=== PATIENT | female | born 1945 | race Caucasian/White ===

== ENCOUNTER 2017-11-05 16:13 | Inpatient (IN) | payer MEDICARE, OTHER ==
[~2017-11-05] VITALS: Ht 152.4 cm; Wt 64.0 kg
[2017-11-05 21:30] VITALS: BP 141/75
[2017-11-05] MEDS ORDERED: OxyCODONE HCL/ACETAMINOPHEN 5-325 MG TABLET NG PRN (21:45)
[2017-11-05] MEDS ORDERED: TEMAZEPAM 15 MG CAPSULE PO PRN (21:45)
[2017-11-05] MEDS ORDERED: ACETAMINOPHEN 650 MG/20.3 ML SOLUTION UDCUP NG PRN (21:45)
[2017-11-05] MEDS ORDERED: SODIUM PHOS/SODIUM BIPHOS 133 ML ENEMA PR PRN (21:45)
[2017-11-05] MEDS ORDERED: DEXTROSE 50%-WATER 25 GM/50 ML SYRINGE IVP PRN (23:45)
[2017-11-05] MEDS ORDERED: INSULIN REGULAR, HUMAN 100 UNITS/ML SQ PRN (23:45)
[2017-11-05 23:56] LABS: APPEARANCE,URINE CLEAR (CLEAR); BILIRUBIN,URINE NEGATIVE (NEGATIVE); GLUCOSE, URINE (UA) NEGATIVE (NEGATIVE); KETONES,URINE >=80 mg/dL (NEGATIVE); LEUKOCYTE ESTERASE ,URINE NEGATIVE (NEGATIVE); NITRATE,URINE NEGATIVE (NEGATIVE); OCCULT BLOOD,URINE NEGATIVE (NEGATIVE); PROTEIN,URINE NEGATIVE (NEGATIVE)
[2017-11-06 00:02] VITALS: BP 137/79
[2017-11-06 00:13] LABS: BACTERIA,URINE None Seen /HPF (None Seen); RBC,URINE None Seen /HPF (0-2); SQUAMOUS EPITHELIAL CELL,UR Rare /LPF (None Seen); WBC,URINE None Seen /HPF (0-5)
[2017-11-06] MEDS ORDERED: DOCUSATE SODIUM 283 MG/5 ML MINI-ENEMA PR PRN (00:15)
[2017-11-06] MEDS ORDERED: MAGNESIUM HYDROXIDE SUSPENSION 30 ML UDCUP NG PRN (00:15)
[2017-11-06 01:28] LABS: GLUCOMETER DEV NAME(LOC) 2WR 1B; GLUCOSE,POINT OF CARE 78 MG/DL (70-110)
[2017-11-06] MEDS ORDERED: DEXTROSE 5%-0.45% SODIUM CHL 1,000 ML IV SCH (01:30)
[2017-11-06 06:23] LABS: BASOPHILS % (AUTO) 0.8 % (0.0-2.0); EOSINOPHILS % (AUTO) 1.8 % (1.0-6.0); HEMATOCRIT 32.3 % (36-46); HEMOGLOBIN 11.1 g/dL (12.0-16.0); LYMPHOCYTES # (AUTO) 3.2 K/uL (1.0-4.8); LYMPHOCYTES % (AUTO) 29.4 % (22.0-44.0); MEAN CORPUSCULAR HEMOGLOBIN 31.7 pg (26.0-34.0); MEAN CORPUSCULAR HGB CONC 34.4 G/dL (31.0-37.0); MEAN CORPUSCULAR VOLUME 92 fL (80-100); MONOCYTES # (AUTO) 1.1 K/uL (0.1-1.0); MONOCYTES % (AUTO) 10.5 % (2.0-9.0); NEUTROPHILS # (AUTO) 6.3 K/uL (1.8-7.7); NEUTROPHILS % (AUTO) 57.5 % (40.0-70.0); PLATELET COUNT (AUTO) 209 K/uL (150-450); RED BLOOD CELL COUNT(AUTO) 3.51 MIL/uL (4.00-5.20); RED CELL DISTRIBUTION WIDTH 13.4 % (11.5-14.5)
[2017-11-06 06:24] LABS: GLUCOMETER DEV NAME(LOC) 2WR 2E; GLUCOSE,POINT OF CARE 100 MG/DL (70-110)
[2017-11-06 06:39] LABS: ALANINE AMINOTRANSFERASE 18 U/L (12-78); ALKALINE PHOSPHATASE 52 U/L (46-116); ANION GAP 7 mmol/L (8-16); ASPARTATE AMINOTRANSFERASE 22 U/L (15-37); BILIRUBIN,TOTAL 0.3 mg/dL (0.1-1.0); CALCIUM, TOTAL 8.8 mg/dL (8.8-10.5); CARBON DIOXIDE 28 mmol/L (22-29); CHLORIDE 103 mmol/L (98-107); CREATININE 0.73 mg/dL (0.60-1.30); GLUCOSE,RANDOM 99 mg/dL (70-110); SODIUM SERUM 138 mmol/L (136-145); TOTAL PROTEIN, SERUM 6.6 g/dL (6.4-8.2); UREA NITROGEN, BLOOD 11 mg/dL (7-18)
[2017-11-06 06:42] LABS: GLOMERULAR FILTR. RATE CALC > 60 mL/min (>60); POTASSIUM 2.9 mmol/L (3.5-5.1)
[2017-11-06] MEDS ORDERED: POTASSIUM CHLORIDE 20 MEQ ER TABLET PO PRN (07:00)
[2017-11-06 07:15] VITALS: BP 152/74
[2017-11-06] MEDS: POTASSIUM CHL 10 MEQ/WATER 50 ML IV PRN ×4 (08:25→13:48)
[2017-11-06] MEDS: HYDROmorphone 2 MG/ML SYRINGE IVP PRN ×2 (08:41→18:48)
[2017-11-06] MEDS ORDERED: DOCUSATE SODIUM 100 MG CAPSULE NG SCH (09:00)
[2017-11-06] MEDS ORDERED: DEXAMETHASONE 1 MG TABLET NG SCH (09:00)
[2017-11-06] MEDS ORDERED: METOPROLOL SUCCINATE 50 MG ER TABLET NG SCH (09:00)
[2017-11-06] MEDS ORDERED: CHOLECALCIFEROL (VIT D3) 1,000 UNITS TABLET NG SCH (09:00)
[2017-11-06] MEDS ORDERED: LORATADINE 10 MG TABLET NG SCH (09:00)
[2017-11-06] MEDS ORDERED: OMEPRAZOLE 20 MG CAPSULE NG SCH (09:00)
[2017-11-06 12:00] VITALS: BP 130/76
[2017-11-06 12:34] LABS: GLUCOMETER DEV NAME(LOC) 2WR 1B; GLUCOSE,POINT OF CARE 93 MG/DL (70-110)
[2017-11-06 15:00] VITALS: BP 133/76
[2017-11-06] MEDS ORDERED: OxyCODONE HCL/ACETAMINOPHEN 5-325 MG TABLET PO PRN (19:57)
[2017-11-06] MEDS ORDERED: DOCUSATE SODIUM 100 MG CAPSULE PO SCH (19:58)
[2017-11-06 20:04] VITALS: BP 126/70
[2017-11-06] MEDS: DEXAMETHASONE 1 MG TABLET PO SCH (20:10)
[2017-11-06] MEDS: METOPROLOL SUCCINATE 50 MG ER TABLET PO SCH (20:10)
[2017-11-06] MEDS: GABAPENTIN 300 MG CAPSULE PO SCH (20:10)
[2017-11-06] MEDS: MAGNESIUM HYDROXIDE SUSPENSION 30 ML UDCUP PO PRN (20:11)
[2017-11-06] MEDS: CITALOPRAM HYDROBROMIDE 10 MG TABLET PO SCH (20:11)
[2017-11-06] MEDS ORDERED: SENNA 187 MG TABLET PO SCH (21:00)
[2017-11-06] MEDS ORDERED: SENNA 218 MG/5 ML SYRUP ORAL.SYG NG SCH (21:00)
[2017-11-06] MEDS ORDERED: GABA-531 PO (21:47)
[2017-11-06] MEDS ORDERED: OMEP20 PO (21:47)
[2017-11-06] MEDS ORDERED: CHOL200078 PO (21:47)
[2017-11-06] MEDS ORDERED: METO50 PO (21:47)
[2017-11-06] MEDS ORDERED: CITA10TA68 PO (21:47)
[2017-11-06] MEDS ORDERED: MELO-107 PO (21:47)
[2017-11-06] MEDS ORDERED: CYCL05OE OU (21:49)
[2017-11-06] MEDS ORDERED: LORA10TA7 PO (21:49)
[2017-11-07 05:03] VITALS: BP 146/80
[2017-11-07] MEDS: OMEPRAZOLE 20 MG CAPSULE PO SCH (07:44)
[2017-11-07] MEDS: DOCUSATE SODIUM 250 MG CAPSULE PO SCH ×2 (07:45→20:15)
[2017-11-07] MEDS: DEXAMETHASONE 1 MG TABLET PO SCH ×2 (07:45→20:15)
[2017-11-07] MEDS: METOPROLOL SUCCINATE 50 MG ER TABLET PO SCH ×2 (07:45→20:15)
[2017-11-07] MEDS: LORATADINE 10 MG TABLET PO SCH (07:45)
[2017-11-07] MEDS: 0.9% SODIUM CHLORIDE 10 ML SYRINGE IVP SCH ×2 (07:46→16:53)
[2017-11-07 08:00] VITALS: BP 126/80
[2017-11-07] MEDS: ACETAMINOPHEN 325 MG TABLET PO PRN ×2 (08:00→16:53)
[2017-11-07 15:25] VITALS: BP 137/81
[2017-11-07] MEDS: CITALOPRAM HYDROBROMIDE 10 MG TABLET PO SCH (20:14)
[2017-11-07] MEDS: SENNA 187 MG TABLET PO SCH (20:15)
[2017-11-07] MEDS: GABAPENTIN 300 MG CAPSULE PO SCH (20:15)
[2017-11-07 20:16] VITALS: BP 125/65
[2017-11-07] MEDS ORDERED: POLYETHYLENE GLYCOL 3350 17 GM PACKET PO PRN (23:30)
[2017-11-08] MEDS: 0.9% SODIUM CHLORIDE 10 ML SYRINGE IVP SCH (01:34)
[2017-11-08 02:00] VITALS: BP 122/73
[2017-11-08] MEDS: MAGNESIUM HYDROXIDE SUSPENSION 30 ML UDCUP PO PRN (05:27)
[2017-11-08 07:30] VITALS: BP 138/79
[2017-11-08] MEDS: DOCUSATE SODIUM 250 MG CAPSULE PO SCH ×2 (08:06→20:08)
[2017-11-08] MEDS: METOPROLOL SUCCINATE 50 MG ER TABLET PO SCH ×2 (08:06→20:07)
[2017-11-08] MEDS: OMEPRAZOLE 20 MG CAPSULE PO SCH (08:06)
[2017-11-08] MEDS: DEXAMETHASONE 1 MG TABLET PO SCH ×2 (08:06→20:07)
[2017-11-08] MEDS: LORATADINE 10 MG TABLET PO SCH (08:06)
[2017-11-08] MEDS: MULTIVITAMINS WITH MINERALS, THERAPEUTIC TABLET PO SCH (08:06)
[2017-11-08 16:00] VITALS: BP 135/79
[2017-11-08 20:05] VITALS: BP 115/66
[2017-11-08] MEDS: GABAPENTIN 300 MG CAPSULE PO SCH (20:07)
[2017-11-08] MEDS: SENNA 187 MG TABLET PO SCH (20:07)
[2017-11-08] MEDS: CITALOPRAM HYDROBROMIDE 10 MG TABLET PO SCH (20:07)
[2017-11-09 03:00] VITALS: BP 139/80
[2017-11-09 07:47] VITALS: BP 141/79
[2017-11-09] MEDS: OMEPRAZOLE 20 MG CAPSULE PO SCH (07:54)
[2017-11-09] MEDS: MULTIVITAMINS WITH MINERALS, THERAPEUTIC TABLET PO SCH (07:54)
[2017-11-09] MEDS: DOCUSATE SODIUM 250 MG CAPSULE PO SCH ×2 (07:54→21:04)
[2017-11-09] MEDS: METOPROLOL SUCCINATE 50 MG ER TABLET PO SCH ×2 (07:54→21:04)
[2017-11-09] MEDS: DEXAMETHASONE 1 MG TABLET PO SCH ×2 (07:54→21:04)
[2017-11-09] MEDS: LORATADINE 10 MG TABLET PO SCH (07:54)
[2017-11-09] MEDS: POLYETHYLENE GLYCOL 3350 17 GM PACKET PO SCH (07:55)
[2017-11-09] MEDS: ACETAMINOPHEN 325 MG TABLET PO PRN (11:38)
[2017-11-09 15:09] VITALS: BP 123/69
[2017-11-09] MEDS: CITALOPRAM HYDROBROMIDE 10 MG TABLET PO SCH (21:04)
[2017-11-09] MEDS: SENNA 187 MG TABLET PO SCH (21:04)
[2017-11-09] MEDS: GABAPENTIN 300 MG CAPSULE PO SCH (21:04)
[2017-11-10 01:21] VITALS: BP 120/72
[2017-11-10 06:57] LABS: BASOPHILS % (AUTO) 0.8 % (0.0-2.0); EOSINOPHILS % (AUTO) 1.4 % (1.0-6.0); HEMATOCRIT 35.3 % (36-46); LYMPHOCYTES # (AUTO) 3.5 K/uL (1.0-4.8); LYMPHOCYTES % (AUTO) 27.8 % (22.0-44.0); MEAN CORPUSCULAR HEMOGLOBIN 31.3 pg (26.0-34.0); MEAN CORPUSCULAR VOLUME 92 fL (80-100); MONOCYTES # (AUTO) 0.8 K/uL (0.1-1.0); MONOCYTES % (AUTO) 6.5 % (2.0-9.0); NEUTROPHILS % (AUTO) 63.5 % (40.0-70.0); PLATELET COUNT (AUTO) 295 K/uL (150-450); RED BLOOD CELL COUNT(AUTO) 3.83 MIL/uL (4.00-5.20); RED CELL DISTRIBUTION WIDTH 13.5 % (11.5-14.5)
[2017-11-10] MEDS: OMEPRAZOLE 20 MG CAPSULE PO SCH (07:47)
[2017-11-10] MEDS: ACETAMINOPHEN 325 MG TABLET PO PRN (07:47)
[2017-11-10 07:55] VITALS: BP 138/72
[2017-11-10] MEDS: DOCUSATE SODIUM 250 MG CAPSULE PO SCH ×2 (08:08→21:01)
[2017-11-10] MEDS: MULTIVITAMINS WITH MINERALS, THERAPEUTIC TABLET PO SCH (08:08)
[2017-11-10] MEDS: METOPROLOL SUCCINATE 50 MG ER TABLET PO SCH ×2 (08:08→21:11)
[2017-11-10] MEDS: LORATADINE 10 MG TABLET PO SCH (08:09)
[2017-11-10] MEDS: POLYETHYLENE GLYCOL 3350 17 GM PACKET PO SCH (08:09)
[2017-11-10] MEDS: DEXAMETHASONE 1 MG TABLET PO SCH ×2 (08:09→21:01)
[2017-11-10 15:17] VITALS: BP 116/70
[2017-11-10 20:55] VITALS: BP 109/71
[2017-11-10] MEDS: DICLOFENAC SODIUM 1% 100 GM GEL [2GM] TP SCH (21:01)
[2017-11-10] MEDS: SENNA 187 MG TABLET PO SCH (21:01)
[2017-11-10] MEDS: CITALOPRAM HYDROBROMIDE 10 MG TABLET PO SCH (21:01)
[2017-11-10] MEDS: GABAPENTIN 300 MG CAPSULE PO SCH (21:01)
[2017-11-10 21:10] VITALS: BP 116/71
[2017-11-11 01:00] VITALS: BP 139/79
[2017-11-11 07:30] VITALS: BP 117/78
[2017-11-11] MEDS: ACETAMINOPHEN 325 MG TABLET PO PRN (09:43)
[2017-11-11] MEDS: LORATADINE 10 MG TABLET PO SCH (10:04)
[2017-11-11] MEDS: METOPROLOL SUCCINATE 50 MG ER TABLET PO SCH ×2 (10:05→20:15)
[2017-11-11] MEDS: MULTIVITAMINS WITH MINERALS, THERAPEUTIC TABLET PO SCH (10:05)
[2017-11-11] MEDS: DEXAMETHASONE 1 MG TABLET PO SCH ×2 (10:05→10:23)
[2017-11-11] MEDS: DICLOFENAC SODIUM 1% 100 GM GEL [2GM] TP SCH ×2 (10:05→20:15)
[2017-11-11] MEDS: POLYETHYLENE GLYCOL 3350 17 GM PACKET PO SCH (10:05)
[2017-11-11] MEDS: DOCUSATE SODIUM 250 MG CAPSULE PO SCH ×2 (10:05→20:15)
[2017-11-11] MEDS: OMEPRAZOLE 20 MG CAPSULE PO SCH (10:05)
[2017-11-11 15:22] VITALS: BP 119/71
[2017-11-11] MEDS: CITALOPRAM HYDROBROMIDE 10 MG TABLET PO SCH (20:15)
[2017-11-11] MEDS: GABAPENTIN 300 MG CAPSULE PO SCH (20:15)
[2017-11-11] MEDS: SENNA 187 MG TABLET PO SCH (20:15)
[2017-11-11 20:20] VITALS: BP 107/63
[2017-11-12 01:02] VITALS: BP 142/58
[2017-11-12 07:15] VITALS: BP 110/67
[2017-11-12] MEDS: POLYETHYLENE GLYCOL 3350 17 GM PACKET PO SCH (07:53)
[2017-11-12] MEDS: MULTIVITAMINS WITH MINERALS, THERAPEUTIC TABLET PO SCH (07:53)
[2017-11-12] MEDS: DOCUSATE SODIUM 250 MG CAPSULE PO SCH ×2 (07:53→21:13)
[2017-11-12] MEDS: DICLOFENAC SODIUM 1% 100 GM GEL [2GM] TP SCH ×2 (07:53→21:13)
[2017-11-12] MEDS: OMEPRAZOLE 20 MG CAPSULE PO SCH (07:53)
[2017-11-12] MEDS: METOPROLOL SUCCINATE 50 MG ER TABLET PO SCH ×2 (07:53→21:23)
[2017-11-12] MEDS: LORATADINE 10 MG TABLET PO SCH (07:54)
[2017-11-12] MEDS: DEXAMETHASONE 1 MG TABLET PO SCH (07:54)
[2017-11-12] MEDS ORDERED: GABAPENTIN 100 MG CAPSULE PO SCH (13:00)
[2017-11-12 15:30] VITALS: BP 106/64
[2017-11-12] MEDS: GABAPENTIN 300 MG CAPSULE PO SCH ×2 (16:56→21:13)
[2017-11-12 21:06] VITALS: BP 101/53
[2017-11-12] MEDS: CITALOPRAM HYDROBROMIDE 10 MG TABLET PO SCH (21:13)
[2017-11-12] MEDS: SENNA 187 MG TABLET PO SCH (21:13)
[2017-11-12 21:21] VITALS: BP 116/68
[2017-11-13 01:30] VITALS: BP 124/69
[2017-11-13] MEDS: GABAPENTIN 300 MG CAPSULE PO SCH ×3 (07:32→20:29)
[2017-11-13] MEDS: POLYETHYLENE GLYCOL 3350 17 GM PACKET PO SCH (07:32)
[2017-11-13 07:33] VITALS: BP 113/67
[2017-11-13] MEDS: METOPROLOL SUCCINATE 50 MG ER TABLET PO SCH ×2 (07:33→20:29)
[2017-11-13] MEDS: DEXAMETHASONE 1 MG TABLET PO SCH (07:33)
[2017-11-13] MEDS: DOCUSATE SODIUM 250 MG CAPSULE PO SCH ×2 (07:33→20:29)
[2017-11-13] MEDS: LORATADINE 10 MG TABLET PO SCH (07:33)
[2017-11-13] MEDS: OMEPRAZOLE 20 MG CAPSULE PO SCH (07:33)
[2017-11-13] MEDS: MULTIVITAMINS WITH MINERALS, THERAPEUTIC TABLET PO SCH (07:33)
[2017-11-13] MEDS: ACETAMINOPHEN 325 MG TABLET PO PRN (07:33)
[2017-11-13] MEDS: DICLOFENAC SODIUM 1% 100 GM GEL [2GM] TP SCH ×2 (07:33→20:29)
[2017-11-13] MEDS ORDERED: GABAPENTIN 100 MG CAPSULE PO SCH (09:00)
[2017-11-13] MEDS ORDERED: MIRALAX PO (12:55)
[2017-11-13] MEDS ORDERED: DEXA.5 PO (12:55)
[2017-11-13] MEDS ORDERED: DOCU250C91 PO (12:55)
[2017-11-13] MEDS ORDERED: DICL2100G TP (12:55)
[2017-11-13] MEDS ORDERED: LORA10TA7 PO (12:55)
[2017-11-13] MEDS ORDERED: OMEP20 PO (12:55)
[2017-11-13] MEDS ORDERED: MULT-1239 PO (12:55)
[2017-11-13] MEDS ORDERED: METO-558 PO (12:55)
[2017-11-13 15:27] VITALS: BP 105/61
[2017-11-13] MEDS: SENNA 187 MG TABLET PO SCH (20:29)
[2017-11-13 20:30] VITALS: BP 102/60
[2017-11-13] MEDS: CITALOPRAM HYDROBROMIDE 10 MG TABLET PO SCH (20:30)
[2017-11-14 05:30] VITALS: BP 129/70
[2017-11-14] MEDS: MAGNESIUM HYDROXIDE SUSPENSION 30 ML UDCUP PO PRN (05:47)
[2017-11-14 08:00] VITALS: BP 104/66
[2017-11-14] MEDS: POLYETHYLENE GLYCOL 3350 17 GM PACKET PO SCH ×2 (08:39→21:21)
[2017-11-14] MEDS: DICLOFENAC SODIUM 1% 100 GM GEL [2GM] TP SCH ×2 (08:39→21:21)
[2017-11-14] MEDS: OMEPRAZOLE 20 MG CAPSULE PO SCH (08:39)
[2017-11-14] MEDS: GABAPENTIN 300 MG CAPSULE PO SCH ×3 (08:39→21:21)
[2017-11-14] MEDS: MULTIVITAMINS WITH MINERALS, THERAPEUTIC TABLET PO SCH (08:39)
[2017-11-14] MEDS: LORATADINE 10 MG TABLET PO SCH (08:39)
[2017-11-14] MEDS: DOCUSATE SODIUM 250 MG CAPSULE PO SCH ×2 (08:39→21:21)
[2017-11-14] MEDS: METOPROLOL SUCCINATE 50 MG ER TABLET PO SCH ×2 (08:39→21:21)
[2017-11-14 16:18] VITALS: BP 103/59
[2017-11-14] MEDS: SENNA 187 MG TABLET PO SCH (21:21)
[2017-11-14] MEDS: CITALOPRAM HYDROBROMIDE 10 MG TABLET PO SCH (21:22)
[2017-11-14 21:28] VITALS: BP 108/57
[2017-11-15 05:00] VITALS: BP 115/71
[2017-11-15 07:45] VITALS: BP 119/67
[2017-11-15] MEDS ORDERED: MIRALAX PO (07:48)
[2017-11-15] MEDS ORDERED: GABA-531 PO ×2 (07:48→08:22)
[2017-11-15] MEDS: DOCUSATE SODIUM 250 MG CAPSULE PO SCH (08:20)
[2017-11-15] MEDS: OMEPRAZOLE 20 MG CAPSULE PO SCH (08:20)
[2017-11-15] MEDS: MULTIVITAMINS WITH MINERALS, THERAPEUTIC TABLET PO SCH (08:20)
[2017-11-15] MEDS: DICLOFENAC SODIUM 1% 100 GM GEL [2GM] TP SCH (08:20)
[2017-11-15] MEDS: LORATADINE 10 MG TABLET PO SCH (08:20)
[2017-11-15] MEDS: GABAPENTIN 300 MG CAPSULE PO SCH (08:20)
[2017-11-15] MEDS: POLYETHYLENE GLYCOL 3350 17 GM PACKET PO SCH (08:20)
[2017-11-15] MEDS: METOPROLOL SUCCINATE 50 MG ER TABLET PO SCH (08:21)
== END 2017-11-15 10:25 | disposition home or self-care (01) | DRG 91 ==
LOC: 2WR 21:07
PROVIDERS: ADMIT Physical Medicine & Rehabilitation; ATTEND Physical Medicine & Rehabilitation
DX: G95.89 Other specified diseases of spinal cord (principal); E43 Unspecified severe protein-calorie malnutrition; M54.12 Radiculopathy, cervical region; E78.5 Hyperlipidemia, unspecified; Z74.09 Other reduced mobility; I10 Essential (primary) hypertension; G89.29 Other chronic pain; H91.90 Unspecified hearing loss, unspecified ear; K64.8 Other hemorrhoids; R13.10 Dysphagia, unspecified; D64.9 Anemia, unspecified; E87.6 Hypokalemia; F32.9 Major depressive disorder, single episode, unspecified; Z98.1 Arthrodesis status; Z88.6 Allergy status to analgesic agent; Z68.27 Body mass index [BMI] 27.0-27.9, adult
CPT/HCPCS: 74018; 84132; 87081; 92526; 92610; 97110; 97116; 97150; 97162; 97166; 97530; 97535; 99366; J1170; J3480; J8540